=== PATIENT | female | born 1995 | race Caucasian/White ===

== ENCOUNTER 2019-12-27 05:20 | Inpatient (IN) | payer MEDICAID ==
[~2019-12-27] VITALS: Ht 154.9 cm; Wt 81.3 kg
[2019-12-27] MEDS ORDERED: LACTATED RINGERS 1,000 ML IV SCH (05:58)
[2019-12-27] MEDS ORDERED: OXYTOCIN 30U/ 0.9% NaCL 500ML 500 ML IV PRN (05:58)
[2019-12-27] MEDS ORDERED: D5%-LACTATED RINGERS 1,000 ML IV SCH (05:58)
[2019-12-27] MEDS ORDERED: OXYTOCIN 30U/ 0.9% NaCL 500ML 500 ML IV ONE (05:58)
[2019-12-27] MEDS ORDERED: NEWBORN KIT ONE (05:58)
[2019-12-27] MEDS ORDERED: TERBUTALINE 1 MG/ML, 1ML IVPush PRN (06:00)
[2019-12-27] MEDS ORDERED: FENTANYL PF 100 MCG/2ML IVPush PRN (06:00)
[2019-12-27] MEDS ORDERED: TERBUTALINE 1 MG/ML, 1ML SQ PRN (06:00)
[2019-12-27] MEDS ORDERED: ALUMINUM/MAG/SIMETHICONE 30 ML UDC PO PRN (06:00)
[2019-12-27] MEDS ORDERED: FENTANYL PF 100 MCG/2ML IV PRN (06:00)
[2019-12-27] MEDS ORDERED: MISOPROSTOL 25 MCG TABLET ONE (07:42)
[2019-12-27 08:09] LABS: MEAN CORPUSCULAR HEMOGLOBIN 31.1 pg (27.0-34.8); MEAN CORPUSCULAR HGB CONC 33.9 g/dL (32.4-35.8); MEAN CORPUSCULAR VOLUME 91.9 fL (80-100); RED BLOOD COUNT 3.57 x10^6/uL (3.82-5.3); RED CELL DISTRIBUTION WIDTH 13.3 % (9.6-15.2)
[2019-12-27 08:20] LABS: BASOPHILS # (AUTO) 0.01 x10^3/uL (0-0.1); BASOPHILS % (AUTO) 0 % (0-1); EOSINOPHILS # (AUTO) 0.03 x10^3/uL (0-0.4); EOSINOPHILS % (AUTO) 1 % (1-7); LYMPHOCYTES # (AUTO) 1.68 x10^3/uL (1-3.4); LYMPHOCYTES % (AUTO) 23 % (22-44); MD MORPH REVIEW ONLY; MEAN PLATELET VOLUME 13.5 fL (7.4-10.4); MONOCYTES # (AUTO) 0.63 x10^3/uL (0.2-0.8); MONOCYTES % (AUTO) 9 % (2-9); NEUTROPHILS # (AUTO) 4.85 x10^3/uL (1.8-6.8); NEUTROPHILS % (AUTO) 67 % (42-75); PLATELET COUNT 85 x10^3/uL (130-400)
[2019-12-27 08:21] LABS: ANISOCYTOSIS 1+
[2019-12-27 08:24] LABS: <PLATELET ESTIMATE> DECREASED; GIANT PLATELETS 1+; LARGE PLATELETS 1+; POLYCHROMASIA 1+
[2019-12-27] MEDS ORDERED: ACETAMINOPHEN 325 MG TABLET ONE (11:18)
[2019-12-27] MEDS ORDERED: ACETAMINOPHEN 325 MG TABLET PO PRN ×3 (11:30→16:00)
[2019-12-27] MEDS ORDERED: OXYTOCIN 30U/ 0.9% NaCL 500ML 500 ML ONE ×2 (12:03→16:42)
[2019-12-27] MEDS ORDERED: FENTANYL PF 100 MCG/2ML ONE (14:04)
[2019-12-27] MEDS ORDERED: ONDANSETRON 2MG/ML, 2ML IV PRN (16:00)
[2019-12-27] MEDS ORDERED: SIMETHICONE 80 MG CHEW TAB PO PRN (16:00)
[2019-12-27] MEDS ORDERED: MISOPROSTOL 200 MCG TABLET PO PRN (16:00)
[2019-12-27] MEDS ORDERED: OXYcodone/APAP 5/325MG TABLET ONE (16:08)
[2019-12-27] MEDS: OXYcodone/APAP 5/325MG TABLET PO PRN ×2 (16:10→20:00)
[2019-12-27] MEDS: OXYTOCIN 30U/ 0.9% NaCL 500ML 500 ML IV SCH (16:45)
[2019-12-27] MEDS ORDERED: NICOTINE 14MG/24 HR PATCH.TD24 TD SCH (17:30)
[2019-12-27 17:55] VITALS: BP 119/84
[2019-12-27] MEDS: IBUPROFEN 600 MG TABLET PO PRN (18:01)
[2019-12-27 20:00] VITALS: BP 128/82
[2019-12-27] MEDS: DOCUSATE 100 MG CAPSULE PO PRN (22:56)
[2019-12-28] VITALS: BP 125/85
[2019-12-28] MEDS: OXYTOCIN 30U/ 0.9% NaCL 500ML 500 ML IV SCH (01:56)
[2019-12-28] MEDS: OXYcodone/APAP 5/325MG TABLET PO PRN ×2 (03:08→08:56)
[2019-12-28] MEDS: IBUPROFEN 600 MG TABLET PO PRN ×2 (03:08→12:41)
[2019-12-28 04:03] VITALS: BP 122/80
[2019-12-28 05:45] LABS: BASOPHILS # (AUTO) 0.05 x10^3/uL (0-0.1); BASOPHILS % (AUTO) 0 % (0-1); EOSINOPHILS # (AUTO) 0.01 x10^3/uL (0-0.4); EOSINOPHILS % (AUTO) 0 % (1-7); LYMPHOCYTES # (AUTO) 1.38 x10^3/uL (1-3.4); LYMPHOCYTES % (AUTO) 10 % (22-44); MD SCAN; MEAN CORPUSCULAR HEMOGLOBIN 31.2 pg (27.0-34.8); MEAN PLATELET VOLUME 13.1 fL (7.4-10.4); MONOCYTES # (AUTO) 0.57 x10^3/uL (0.2-0.8); MONOCYTES % (AUTO) 4 % (2-9); NEUTROPHILS % (AUTO) 86 % (42-75); PLATELET COUNT 98 x10^3/uL (130-400); RED CELL DISTRIBUTION WIDTH 13.6 % (9.6-15.2)
[2019-12-28] MEDS ORDERED: MEASLES,MUMPS&RUBELLA VACC/PF 0.5 ML SQ-VACC ONE (07:11)
[2019-12-28] MEDS: DOCUSATE 100 MG CAPSULE PO PRN (08:56)
[2019-12-28 08:59] VITALS: BP 109/73
[2019-12-28] MEDS ORDERED: PRENATAL VIT/IRON/FA 1 EACH TABLET PO SCH (09:00)
[2019-12-28] MEDS ORDERED: NICO-486 TD (10:53)
[2019-12-28] MEDS ORDERED: IBUP-1222 PO (10:53)
[2019-12-28] MEDS ORDERED: FLU VACC QS2019-20 36MOS UP/PF 0.5 ML IM-VACC ONE (13:00)
== END 2019-12-28 17:00 | disposition home or self-care (01) | DRG 807 ==
LOC: LDIP 05:42 → 2NW 17:49
PROVIDERS: ADMIT Obstetrics & Gynecology; ATTEND Obstetrics & Gynecology
PROC: 10E0XZZ Delivery of Products of Conception, External Approach (ICD-10-PCS; principal; 2019-12-27)
PROC: 10907ZC Drainage of Amniotic Fluid, Therapeutic from Products of Conception, Via Natural or Artificial Opening (ICD-10-PCS; 2019-12-27)
PROC: 3E0P7VZ Introduction of Hormone into Female Reproductive, Via Natural or Artificial Opening (ICD-10-PCS; 2019-12-27)
DX: O99.12 Other diseases of the blood and blood-forming organs and certain disorders involving the immune mechanism complicating childbirth (principal); Z37.0 Single live birth; D69.6 Thrombocytopenia, unspecified; O99.324 Drug use complicating childbirth; F12.90 Cannabis use, unspecified, uncomplicated; Z3A.39 39 weeks gestation of pregnancy; Z87.891 Personal history of nicotine dependence; Z88.1 Allergy status to other antibiotic agents
CPT/HCPCS: 36415; 85025; 86592; 86850; 86900; 86923; G0378; J3010; J2590; J7120; J7512